=== PATIENT | female | born 1995 | race Caucasian/White ===

== ENCOUNTER 2020-01-22 16:04 | Emergency (ER) | payer MEDICAID, OTHER, SELFPAY ==
[~2020-01-22] VITALS: Ht 165.1 cm; Wt 77.3 kg
[~2020-01-22 16:04] MED LIST: PHEN-786 PO
[2020-01-22 16:06] VITALS: BP 121/63
== END 2020-01-22 16:43 | disposition home or self-care (01) ==
LOC: ER 16:04
DX: J02.9 Acute pharyngitis, unspecified (principal); R50.9 Fever, unspecified; R52 Pain, unspecified; Z88.0 Allergy status to penicillin; Z79.899 Other long term (current) drug therapy
CPT/HCPCS: 94760; 99281; 99282